=== PATIENT | female | born 1990 | race African-American/Black ===

== ENCOUNTER 2019-07-02 18:42 | Emergency (ER) | payer OTHER, SELFPAY ==
[2019-07-02 19:23] VITALS: BP 118/78; PULSE 88; RESP 16; TEMP 37.5; O2SAT 98
[2019-07-02 19:38] LABS: Basophils Percent Auto 0.3 % (0.2-1.2); Eosinophils Absolute Auto 0.1 K/mm3 (0-0.3); Eosinophils Percent Auto 0.7 % (0-4.4); Hematocrit 33.5 % (37.0-47.0); Hemoglobin 10.9 g/dL (12.0-15.0); Immature Granulocyte Absolute 0.02 K/mm3 (0.00-0.031); Immature Granulocyte Percent A 0.2 % (0-0.5); Lymphocytes Absolute Auto 2.13 K/mm3 (0.9-3.2); Mean Corpuscular HGB Conc 32.5 g/dl (32-36); Mean Corpuscular Hemoglobin 29.3 pg (26-34); Mean Corpuscular Volume 90.1 fl (80-100); Mean Platelet Volume 10.1 fl (7.4-10.4); Monocytes Absolute Auto 0.4 K/mm3 (0.1-0.6); Monocytes Percent Auto 4.3 % (2.6-8.5); Neutrophils Absolute Auto 6.2 K/mm3 (1.3-6.7); Neutrophils Percent Auto 70.5 % (45.5-73.1); Platelet Count Result 293 k/mm3 (150-375); Red Blood Count 3.72 M/mm3 (4.2-5.4); Red Cell Distribution Width 13.5 % (11.5-14.5); White Blood Count 8.9 K/mm3 (4.5-10.0)
--- NOTE | 2019-07-02 21:29 | PC.NURSE ---
Called lab to add on BMP
[2019-07-02] MEDS: SODIUM CHLORIDE 0.9% IV 1,000 ML 999 ML IV CONT (21:33)
[2019-07-02 21:36] VITALS: BP 92/63; PULSE 83
--- NOTE | 2019-07-02 21:36 | ED.FEMALEGU ---
HPI - Female Genitourinary General Chief complaint: Nausea/Vomiting/Diarrhea <Rhea Hastings PA-C - Last Filed: 07/02/19 23:26> Stated complaint: 8 weeks , MELO, nausea <Rhea Hastings PA-C - Last Filed: 07/02/19 23:26> Time Seen by Provider: 07/02/19 20:38 <LATISHA Meadows Last Filed: 07/02/19 23:26> Source: patient <LATISHA Meadows Last Filed: 07/02/19 23:26> Mode of arrival: ambulatory <LATISHA Meadows Last Filed: 07/02/19 23:26> Limitations: no limitations <Rhea Hastings PA-C - Last Filed: 07/02/19 23:26> History of Present Illness HPI Narrative: This is a 29 year old about 8 weeks that presents to the ER for abnormal vaginal discharge x 3 weeks. Reports she was seen by her OB for this and finished a week of medication, she is unsure what medicine it was. Reports no relief after this. Reports she was seen by her OB again today and a topical treatment was prescribed but she was not able to afford this medication. Reports she had an US today because she was having some spotting in the end of last month that has now resolved. Reports ultrasound was normal. Also reports a dull headache today. Reports she has not taken any medication for this. Reports with her other pregnancies she had trouble with headaches in the first trimester. Denies fever, pelvic cramping, vaginal bleeding, vomiting, dysuria, hematuria. <Rhea Hastings PA-C - Last Filed: 07/02/19 23:26> Related Data Allergies/Adverse reactions: Allergies Allergy/AdvReac Type Severity Reaction Status Date / Time No Known Allergies Allergy Verified 07/02/19 19:27 <Rhea Hastings PA-C - Last Filed: 07/02/19 23:26> Review of Systems Review of Systems: Narrative: CONSTITUTIONAL: Denies fever GASTROINTESTINAL: Reports nausea. Denies abdominal pain, vomiting, or diarrhea. GENITOURINARY: Denies dysuria or hematuria. NEUROLOGIC: Reports headache <Rhea Hastings PA-C - Last Filed: 07/02/19 23:26> All systems reviewed & are unremarkable except as noted in HPI and below <Rhea Hastings PA-C - Last Filed: 07/02/19 23:26> [facility] Social History Social History: Social History (Updated 07/02/19 @ 21:44 by Rhea Hastings PA-C) Smoking status: Never smoker Substance use: current Gender identity (if verbalized by the patient): Female <Rhea Hastings PA-C - Last Filed: 07/02/19 23:26> Exam Narrative: Exam Narrative: GENERAL: Well-appearing, well-nourished, and in no acute distress. HEAD: Normocephalic, atraumatic. EYES: EOMI. ENT: Nares clear, no rhinorrhea or epistaxis. Mucous membranes moist. Oropharynx without tonsillar hypertrophy exudate or other lesions. Bilateral TMs pearly carcamo non-bulging NECK: Supple. No adenopathy or masses. CHEST: Clear to auscultation. No respiratory distress. No wheezes rales or rhonchi HEART: Regular rate and rhythm. No murmur heard. Normal peripheral pulses. ABDOMEN: Soft, nontender, nondistended, normal active bowel sounds. EXTREMITIES: Normal range of motion. No edema. SKIN: Warm, dry, no rash. NEURO: No focal deficits. Alert and oriented x3. PSYCH: Normal mood and affect PELVIC: Normal external genitalia. Mild cervical redness/irritation surrounding the os. Moderate amount of malodorous white discharge in the vaginal vault <Rhea Hastings PA-C - Last Filed: 07/02/19 23:26> Course Vital Signs Vital signs: Vital Signs Temperature 37.5 C 07/02/19 19:23 Pulse Rate 88 07/02/19 19:23 Respiratory Rate 16 07/02/19 19:23 Blood Pressure 118/78 07/02/19 19:23 Pulse Oximetry 98 07/02/19 19:23 Temperature 36.8 C 07/02/19 23:40 Pulse Rate 85 07/02/19 23:28 Respiratory Rate 16 07/02/19 23:28 Blood Pressure 95/59 L 07/02/19 23:28 Pulse Oximetry 100 07/02/19 23:28 <Rhea Hastings PA-C - Last Filed: 07/02/19 23:26> Vital Signs Temperature 37.5 C 07/02/19 19:23 Pulse Rate
[2019-07-02 21:37] VITALS: BP 108/74; PULSE 86
[2019-07-02 21:38] VITALS: BP 109/63; PULSE 91
[2019-07-02 21:40] LABS: Blood Urea Nitrogen 8 mg/dL (7-17); Calcium 8.9 mg/dL (8.4-10.2); Carbon Dioxide 21 mmol/L (22-30); Chloride 103 mmol/L (98-107); Estimated CRCL calculation 136 ml/min; Estimated Glomerular Filt Rate > 60; Glucose 88 mg/dL (65-105); Potassium 3.4 mmol/L (3.4-5.0); Sodium 137 mmol/L (137-145)
[2019-07-02 21:47] LABS: Add Urine Microscopic? YES; Appearance Urine Clear (Clear); Bacteria Urine Trace /hpf; Bilirubin Urine Negative (Negative); Blood Urine Negative (Negative); Color Urine Yellow (Yellow); Glucose Urine UA Negative (Negative); Ketones Urine Negative (Negative); Leukocyte Esterase Ur Trace LEU/UL (Negative); Mucus Urine Few /lpf; Nitrate Urine Negative (Negative); Protein Urine Negative (Negative); Specific Grav Ur 1.028 (1.001-1.035); Squamous Epithelial Cell Urine Many /hpf (Few); Urobilinogen Urine Negative mg/dL (<2.0)
[2019-07-02] MEDS: METOCLOPRAMIDE HCL INJ 10 MG/2 ML VIAL IV PUSH (22:52)
[2019-07-02 23:28] VITALS: BP 95/59; PULSE 85; RESP 16; O2SAT 100
[2019-07-02 23:40] VITALS: TEMP 36.8
== END 2019-07-02 23:42 | disposition home or self-care (01) ==
PROVIDERS: Physician Assistant; Emergency Provider Emergency Medicine
DX: O99.89 Other specified diseases and conditions complicating pregnancy, childbirth and the puerperium (principal); N76.0 Acute vaginitis; R51 Headache; Z3A.08 8 weeks gestation of pregnancy
CPT/HCPCS: 36415; 80048; 81001; 84702; 85025; 86900; 86901; 87070; 87491; 87591; 87804; 87808; 96365; 96375; 99284; J0131; J1200; J2765; J7030

== ENCOUNTER 2020-10-28 18:21 | Emergency (ER) | payer OTHER, SELFPAY ==
[2020-10-28 18:30] VITALS: BP 124/64; PULSE 90; RESP 16; TEMP 36.5; O2SAT 99
--- NOTE | 2020-10-28 19:32 | ED.GENADULT ---
HPI - General Adult General Chief complaint: Unspecified Stated complaint: Head Ache,Back Pain Time Seen by Provider: 10/28/20 18:41 Source: patient Mode of arrival: ambulatory Limitations: no limitations History of Present Illness HPI narrative: Patient is here for evaluation of low back pain, headache and foul-smelling urine. She thinks she may be dehydrated due to the smell of her urine although she states that she drinks water quite a bit. She denies any pain with urination, no diarrhea. And no fever. Onset (ago): day(s) Severity: mild Relieving factors: none Exacerbating factors: none Associated symptoms: denies other symptoms Treatments prior to arrival: none Related Data Allergies Allergy/AdvReac Type Severity Reaction Status Date / Time No Known Allergies Allergy Verified 07/02/19 19:27 Review of Systems Review of Systems: All systems reviewed & are unremarkable except as noted in HPI and below [facility] Social History Social History (Updated 10/28/20 @ 19:39 by Marian Denis PA-C) Smoking status: Never smoker Alcohol intake: never Substance use: former Occupation/Education: occupation Additional occupation/education comments: retail Gender identity (if verbalized by the patient): Female Exam Const: General: cooperative, healthy appearing, comfortable and no acute distress HENMT: Head: normal to inspection Mouth: Yes Normal oral and palatal mucosa present Resp: Effort & Inspection: normal respiratory effort Auscultation: clear to auscultation bilaterally Cardio: Rate: regular rate Rhythm: regular rhythm GI: Inspection: normal to inspection GI Palp: Yes Soft to palpation Auscultation: normal bowel sounds Back/Spine/Pelvis: Back: no CVA tenderness Skin: General skin exam: normal color Course Course Emergency Course: Urine with mild cystitis. Will treat with Macrobid. Vital Signs Vital signs: Vital Signs Temperature 36.5 C 10/28/20 18:30 Pulse Rate 90 10/28/20 18:30 Respiratory Rate 16 10/28/20 18:30 Blood Pressure 124/64 10/28/20 18:30 Pulse Oximetry 99 10/28/20 18:30 Temperature 36.5 C 10/28/20 18:30 Pulse Rate 90 10/28/20 18:30 Respiratory Rate 16 10/28/20 18:30 Blood Pressure 124/64 10/28/20 18:30 Pulse Oximetry 99 10/28/20 18:30 Medical Decision Making Vital Signs Vital Signs: Vital Signs Temperature 36.5 C 10/28/20 18:30 Pulse Rate 90 10/28/20 18:30 Respiratory Rate 16 10/28/20 18:30 Blood Pressure 124/64 10/28/20 18:30 Pulse Oximetry 99 10/28/20 18:30 Temperature 36.5 C 10/28/20 18:30 Pulse Rate 90 10/28/20 18:30 Respiratory Rate 16 10/28/20 18:30 Blood Pressure 124/64 10/28/20 18:30 Pulse Oximetry 99 10/28/20 18:30 Lab Data Labs: Urine Characteristics Cloudy Discharge Plan Discharge Clinical Impression: Cystitis Patient Disposition: Home, Self-Care Condition: Stable Instructions: Antibiotic Form, Urinary Tract Infection in Women (ED) Additional Instructions: Complete your antibiotics as prescribed. Continue to take Tylenol or ibuprofen for your pain. Drink water, avoid caffeinated beverages and alcohol. Follow-up with your primary care physician as scheduled on Sunday. Prescriptions: New nitrofurantoin monohyd/m-cryst [Macrobid] 100 mg capsule 100 mg PO Q12H 5 Days Qty: 10 RF: 0 No Action clindamycin HCl 300 mg capsule 300 mg PO BID 7 Days Qty: 14 RF: 0 metoclopramide HCl [Reglan] 5 mg tablet 5 mg PO Q6H PRN (Reason: nausea and vomiting) Qty: 20 RF: 0 Follow-up/Referrals: PHYSICIAN,LABORATORY TECHNOLOGIST [Primary Care Provider] - Time of Disposition: 20:44
[2020-10-28 20:18] LABS: Add Urine Microscopic? YES; Appearance Urine Cloudy (Clear); Bacteria Urine Trace /hpf; Bilirubin Urine Negative (Negative); Blood Urine Negative (Negative); Color Urine Yellow (Yellow); Glucose Urine UA Negative (Negative); Ketones Urine Negative (Negative); Leukocyte Esterase Ur Trace LEU/UL (Negative); Mucus Urine Few /lpf; Nitrate Urine Negative (Negative); Protein Urine Negative (Negative); RBC Urine 0-2 /hpf (0-2); Specific Grav Ur 1.024 (1.001-1.035); Squamous Epithelial Cell Urine Many /hpf (Few); Urobilinogen Urine Negative mg/dL (<2.0); WBC Urine 0-3 /hpf
[2020-10-28 20:31] VITALS: BP 127/79; O2SAT 100
== END 2020-10-28 20:56 | disposition home or self-care (01) ==
PROVIDERS: Physician Assistant; Emergency Provider Emergency Medicine
DX: N30.90 Cystitis, unspecified without hematuria (principal)
CPT/HCPCS: 81001; 81025; 99283

== ENCOUNTER 2021-03-14 09:26 | Emergency (ER) | payer OTHER, SELFPAY ==
--- NOTE | ~2021-03-14 | XR_ITS ---
EXAMINATION: XR chest 1V portable DATE: 03/14/2021 10:02 INDICATION: Chills. Weakness. TECHNIQUE: A single frontal view of the chest was obtained. COMPARISON: Chest 2 views 10/18/2016 FINDINGS: There are airspace opacities in the right perihilar region and left lower lung zone. No ple ural effusion or pneumothorax. The heart size is normal. IMPRESSION: 1. Airspace opacities in right perihilar region and left lower lung zone suspicious for pneumonia. Reviewed, dictated and finalized at location A. TUB OPERATOR IMPRESSION: 1. Airspace opacities in right perihilar region and left lower lung zone suspic ious for pneumonia.
[2021-03-14 09:32] VITALS: BP 112/71; PULSE 103; RESP 16; TEMP 35.7; O2SAT 99
[2021-03-14 10:27] LABS: Basophils Percent Auto 0.3 % (0.2-1.2); Eosinophils Percent Auto 0.3 % (0-4.4); Hematocrit 41.9 % (37.0-47.0); Hemoglobin 13.7 g/dL (12.0-15.0); Immature Granulocyte Absolute 0.01 K/mm3 (0.00-0.031); Immature Granulocyte Percent A 0.3 % (0-0.5); Lymphocytes Absolute Auto 1.16 K/mm3 (0.9-3.2); Lymphocytes Percent Auto 32.6 % (18.3-44.2); Mean Corpuscular HGB Conc 32.7 g/dl (32-36); Mean Corpuscular Hemoglobin 29.7 pg (26-34); Mean Corpuscular Volume 90.9 fl (80-100); Mean Platelet Volume 10.5 fl (7.4-10.4); Monocytes Absolute Auto 0.3 K/mm3 (0.1-0.6); Monocytes Percent Auto 7.3 % (2.6-8.5); Neutrophils Absolute Auto 2.1 K/mm3 (1.3-6.7); Neutrophils Percent Auto 59.2 % (45.5-73.1); Platelet Count Result 193 k/mm3 (150-375); Red Blood Count 4.61 M/mm3 (4.2-5.4); Red Cell Distribution Width 14.2 % (11.5-14.5); White Blood Count 3.6 K/mm3 (4.5-10.0)
[2021-03-14 10:44] LABS: Alanine Aminotransferase 89 U/L (4-35); Albumin Level 4.7 g/dL (3.5-5.1); Alkaline Phosphatase 100 U/L (38-126); Anion Gap 10 mmol/L (8-16); Aspartate Amino Transferase 125 U/L (14-36); Bilirubin,Total 0.3 mg/dL (0.2-1.3); Blood Urea Nitrogen 7 mg/dL (7-17); Carbon Dioxide 25 mmol/L (22-30); Chloride 103 mmol/L (98-107); Estimated CRCL calculation 93 ml/min; Estimated Glomerular Filt Rate > 60; Glucose 86 mg/dL (65-110); Potassium 3.5 mmol/L (3.4-5.0); Sodium 138 mmol/L (137-145)
[2021-03-14] MEDS: SODIUM CHLORIDE 0.9% IV 1,000 ML 999 ML IV CONT (10:51)
[2021-03-14 11:04] LABS: Add Urine Microscopic? YES; Appearance Urine Cloudy (Clear); Bilirubin Urine Negative (Negative); Blood Urine Negative (Negative); Color Urine Amber (Yellow); Glucose Urine UA Negative (Negative); Ketones Urine 2+ mg/dL (Negative); Leukocyte Esterase Ur Negative LEU/UL (Negative); Mucus Urine Heavy /lpf; Nitrate Urine Negative (Negative); Protein Urine 1+ mg/dL (Negative); Squamous Epithelial Cell Urine Many /hpf (Few); Urobilinogen Urine Negative mg/dL (<2.0)
[2021-03-14 11:12] LABS: Specific Grav Ur 1.031 (1.001-1.035)
[2021-03-14 11:21] LABS: Atypical Lymphocytes Present; Platelet Estimate Adequate (Adequate)
[2021-03-14 11:29] LABS: Lipase 69 U/L (23-300)
[2021-03-14] MEDS: KETOROLAC 15 MG/ML VIAL (*BKC) IV PUSH (11:39)
--- NOTE | 2021-03-14 11:59 | ED.GENADULT ---
HPI - General Adult General Chief complaint: Headache Stated complaint: burning pain all over my body Time Seen by Provider: 03/14/21 09:36 Source: patient Mode of arrival: ambulatory Limitations: no limitations History of Present Illness HPI narrative: Patient is a 31-year-old female presented with chief complaint of body aches, generalized abdominal pain, sinus pain, fatigue that began on Sunday. Patient denies nausea, vomiting or diarrhea. Patient denies fever but reports chills. Patient denies coughing, chest pain or shortness of breath. Patient reports that she has taken Sudafed and a muscle relaxer which helped minimally. Patient denies receiving a flu shot or Covid vaccination. Patient reports that she has not been drinking much fluids due to a decreased appetite due to her symptoms. Related Data Allergies Allergy/AdvReac Type Severity Reaction Status Date / Time No Known Allergies Allergy Verified 03/14/21 11:01 Review of Systems Review of Systems: CONSTITUTIONAL: Reports body aches and chills denies fever or sweats. EYES: Denies visual changes, redness, or discharge. ENT: Denies rhinorrhea, congestion, sore throat, or otalgia. CARDIOVASCULAR: Denies chest pain, palpitations, or edema. RESPIRATORY: Denies cough or dyspnea. GASTROINTESTINAL: Reports abdominal pain, denies nausea, vomiting, or diarrhea. GENITOURINARY: Denies dysuria or hematuria. SKIN: Denies rash or itching. MUSCULOSKELETAL: Denies back pain, joint pain, or myalgia. NEUROLOGIC: Reports headache denies numbness, dizziness, or weakness. PSYCHIATRIC: Denies anxiety or depression. [facility] Social History Social History (Updated 10/28/20 @ 19:39 by Marian Denis PA-C) Smoking status: Never smoker Alcohol intake: never Substance use: former Additional occupation/education comments: retail Gender identity (if verbalized by the patient): Female Exam Narrative: GENERAL: Well-appearing, well-nourished, and in no acute distress. Nontoxic in appearance. HEAD: Normocephalic, atraumatic. EYES: PERRLA and EOMI. ENT: Nares clear, no rhinorrhea or epistaxis. Mucous membranes moist. Oropharynx without tonsillar hypertrophy exudate or other lesions. Bilateral TMs pearly carcamo nonbulging NECK: Supple. No adenopathy or masses. Range of motion intact without rigidity. CHEST: Clear to auscultation. No respiratory distress. No wheezes rales or rhonchi. No tachypnea. No cough noted during exam. HEART: Regular rate and rhythm. No murmur heard. Normal peripheral pulses. ABDOMEN: Soft, nontender, nondistended, normal active bowel sounds. EXTREMITIES: Normal range of motion. No edema. SKIN: Warm, dry, no rash. NEURO: No focal deficits. Alert and oriented x3. PSYCH: Normal mood and affect. Course Vital Signs Vital signs: Vital Signs Temperature 96.3 F L 03/14/21 09:32 Pulse Rate 103 H 03/14/21 09:32 Respiratory Rate 16 03/14/21 09:32 Blood Pressure 112/71 03/14/21 09:32 Pulse Oximetry 99 03/14/21 09:32 Temperature 96.3 F L 03/14/21 09:32 Pulse Rate 103 H 03/14/21 09:32 Respiratory Rate 16 03/14/21 09:32 Blood Pressure 112/71 03/14/21 09:32 Pulse Oximetry 99 03/14/21 09:32 Medical Decision Making MDM Narrative Medical decision making narrative: Patient appears to have viral syndrome however chest x-ray shows area suspicious for pneumonia. Will place patient on azithromycin while Covid test is pending. Suspect viral etiology more so than bacterial but will cover. Patient is not hypoxic. No vomiting. Patient liver enzymes are slightly elevated. This is likely also due to viral syndrome. Patient has been instructed to follow-up with primary care for lab repeat. Patient has been instructed to return to emergency department if she has any localized abdominal pain or worsening of her discomfort., Persistent fever, inability to eat or drink, chest pain, shortness of breath or any other emergent symptoms. Vital Signs
[2021-03-14 12:12] LABS: Monoscreen Negative (Negative); Negative Monotest Control Negative (Negative); Positive Monotest Control Positive (Positive)
[2021-03-14 18:23] LABS: SARS-CoV-2 RNA PCR Positive
== END 2021-03-14 12:59 | disposition home or self-care (01) ==
PROVIDERS: Physician Assistant; Emergency Provider Emergency Medicine
DX: U07.1 COVID-19 (principal); R91.8 Other nonspecific abnormal finding of lung field
CPT/HCPCS: 36415; 71045; 80053; 81001; 81025; 83690; 85025; 86308; 87804; 96361; 96374; 99284; C9803; J1885; J7030; U0003; U0005

== ENCOUNTER 2022-05-24 23:18 | Emergency (ER) | payer OTHER, SELFPAY ==
--- NOTE | ~2022-05-24 | XR_ITS ---
Clinical Indication: Chest congestion PA and lateral views of the chest: Comparison: 03/14/2021 Findings: The lungs are clear, without evidence of focal consolidation or pleural effusion. Cardiome diastinal silhouette is within normal limits. Bones and soft tissues are unremarkable. Impression: Normal chest. Reviewed, dictated and finalized at [facility]. GER ACTION Impression: Normal chest.
[2022-05-24 23:26] VITALS: BP 109/64; PULSE 109; RESP 18; TEMP 36.2; O2SAT 97
--- NOTE | 2022-05-24 23:51 | ED.URI ---
HPI - URI/Sore Throat General Chief Complaint: Upper Respiratory Infection Stated Complaint: congestion, feel dehydrated, burning in chest Time Seen by Provider: 05/24/22 23:29 History of Present Illness HPI Narrative: Patient is a 32-year-old female who is currently 28 weeks here for evaluation of epigastric abdominal burning and sinus congestion for the past 2 days. States that she went to an urgent care facility today and was told to use Flonase. She has been doing medicines without relief of her symptoms. Contacted OB triage who recommended ED eval. Patient believes her pain is due to GERD and has not attempted any medicine for this yet. No nausea, vomiting, diarrhea, constipation, fevers or chills. No contractions, vaginal bleeding, sudden gush of fluids, decreased motion. Related Data Allergies Allergy/AdvReac Type Severity Reaction Status Date / Time No Known Allergies Allergy Verified 05/24/22 23:26 Review of Systems Review of Systems: Gen.: Denies fevers or chills Eyes: Denies eye pain or visual change ENT: Reports congestion. Respiratory: Denies shortness of breath or cough CV: Reports chest pain. GI: Reports upper abdominal pain. denies burning, urgency, frequency or hematuria Musculoskeletal: Denies back pain or muscle pain Neuro: Denies numbness, tingling, weakness or focal weakness Skin: Denies rash Except as documented, all other systems reviewed and negative PMFSH Social History Social History (System 03/15/21 @ 12:59 by Aminah Rivera) Smoking status: Never smoker Alcohol intake: never Substance use: former Occupation/Education: occupation Additional occupation/education comments: retail Gender identity (if verbalized by the patient): Female Exam Narrative: APPEARANCE: Well appearing, no pain in distress, well-nourished. Head: Normocephalic and atraumatic. EYES: PERRLA/EOMI, conjunctivae clear NOSE: No nasal drainage EARS: External ear normal in appearance THROAT: Oropharynx is clear. Mucous membranes are moist. NECK: Mucosal edema and nares. Supple. No adenopathy, no masses. RESPIRATORY: Airway patent, respirations nonlabored. Clear to auscultation bilaterally, no rales, rhonchi, wheezing. CARDIOVASCULAR: Regular rate and rhythm without murmurs, rubs, or gallops. ABDOMINAL: Gravid uterus. No tenderness to palpation. Normoactive bowel sounds. Soft. No rebound tenderness or guarding. MUSCULOSKELETAL: Extremities are warm and well-perfused. Moves all extremities well. No edema. NEURO: Normal speech. No focal neurologic deficits. SKIN: Skin is warm and dry. No rashes. PSYCHIATRIC: Normal affect/mood. Course Vital Signs Vital signs: Vital Signs Temperature 97.2 F L 05/24/22 23:26 Pulse Rate 109 H 05/24/22 23:26 Respiratory Rate 18 05/24/22 23:26 Blood Pressure 109/64 05/24/22 23:26 Pulse Oximetry 97 05/24/22 23:26 Oxygen Delivery Room Air 05/24/22 23:26 Temperature 97.2 F L 05/24/22 23:26 Pulse Rate 69 05/25/22 01:52 Respiratory Rate 19 05/25/22 01:52 Blood Pressure 130/74 05/25/22 01:52 Pulse Oximetry 99 05/25/22 01:52 Oxygen Delivery Room Air 05/25/22 00:44 MDM - URI/Sore Throat MDM Narrative Medical decision making narrative: 32-year-old female here for evaluation of upper respiratory infectious type symptoms over the past day associated with an epigastric burning sensation. Patient is nontoxic-appearing and has normal vital signs. No abdominal tenderness on exam, heart tones detected at bedside. History consistent with GERD. She was given Tums and Pepcid with relief of her symptoms. EKG and troponin nonischemic. Chest x-ray is clear by preliminary read. COVID and flu are negative. Her hemoglobin is 9.7, not complaining of bleeding. She is agreeable plan for outpatient follow-up. Return precautions discussed and she voiced understanding. Lab Data 05/25/22 00:03 05/25/22 00
[2022-05-24] MEDS: CALCIUM CARBONATE (TUMS) 500 MG (200 MG ELEMENTAL) PO (23:58)
--- NOTE | 2022-05-25 00:01 | ECG_ITS ---
Measurements Intervals [place] Rate: 101 P: 32 VT: 155 QRS: 36 QRSD: 80 T: 20 QT: 340 QTc: 442 Interpretive Statements SINUS TACHYCARDIA NONSPECIFIC T-WAVE ABNORMALITY- ANTERIOR LEADS BASELINE ARTIFACT- I, II, III, AVR, AVL, AVF, V1-V6 BORDERLINE ECG ABNORMAL RHYTHM ECG NO PREVIOUS ECG AVAILABLE FOR COMPARISON Electronically Signed On 05-25-2022 9:06:23 HEEL DIPPER by Jean Downs D.O.
[2022-05-25 00:16] LABS: Basophils Percent Auto 0.3 % (0.2-1.2); Eosinophils Absolute Auto 0.1 K/mm3 (0-0.3); Hematocrit 30.5 % (37.0-47.0); Hemoglobin 9.7 g/dL (12.0-15.0); Immature Granulocyte Absolute 0.08 K/mm3 (0.00-0.031); Immature Granulocyte Percent A 0.8 % (0-0.5); Lymphocytes Absolute Auto 2.11 K/mm3 (0.9-3.2); Lymphocytes Percent Auto 21.1 % (18.3-44.2); Mean Corpuscular HGB Conc 31.8 g/dl (32-36); Mean Corpuscular Hemoglobin 28.1 pg (26-34); Mean Corpuscular Volume 88.4 fl (80-100); Mean Platelet Volume 10.3 fl (7.4-10.4); Monocytes Absolute Auto 0.6 K/mm3 (0.1-0.6); Monocytes Percent Auto 5.6 % (2.6-8.5); Neutrophils Absolute Auto 7.1 K/mm3 (1.3-6.7); Neutrophils Percent Auto 71.2 % (45.5-73.1); Platelet Count Result 345 k/mm3 (150-375); Red Blood Count 3.45 M/mm3 (4.2-5.4); Red Cell Distribution Width 15.5 % (11.5-14.5)
[2022-05-25 00:19] LABS: Alanine Aminotransferase 36 U/L (6-35); Albumin Level 3.6 g/dL (3.5-5.1); Alkaline Phosphatase 114 U/L (38-126); Anion Gap 5 mmol/L (8-16); Aspartate Amino Transferase 60 U/L (14-36); Bilirubin,Total 0.4 mg/dL (0.2-1.3); Blood Urea Nitrogen 4 mg/dL (7-17); Calcium 8.8 mg/dL (8.4-10.2); Carbon Dioxide 21 mmol/L (22-30); Chloride 105 mmol/L (98-107); Estimated CRCL calculation 165 ml/min; Estimated Glomerular Filt Rate > 60; Glucose 104 mg/dL (65-110); Lipase 147 U/L (23-300); Potassium 3.4 mmol/L (3.4-5.0); Sodium 131 mmol/L (137-145)
[2022-05-25 00:44] VITALS: O2SAT 97
[2022-05-25 00:44] LABS: Influenza A QL RT-PCR Negative (Negative); Influenza B QL RT-PCR Negative (Negative); SARS-CoV-2 RNA PCR Negative
[2022-05-25 00:46] LABS: Troponin I < 0.012 ng/mL (0.000-0.034)
[2022-05-25] MEDS: LACTATED RINGERS 1,000 ML 999 ML IV CONT (01:07)
[2022-05-25] MEDS: FAMOTIDINE 20 MG/2 ML VIAL IV PUSH (01:07)
[2022-05-25 01:52] VITALS: BP 130/74; PULSE 69; RESP 19; O2SAT 99
--- NOTE | 2022-06-08 15:19 | PC.NURSE ---
LATE ENTRY This note is being entered to document information to the patient's record. The following information was omitted on [05/24/22], by [Tracee Lee RN]. NS stop time 0200
== END 2022-05-25 01:50 | disposition home or self-care (01) ==
PROVIDERS: Emergency Provider Physician Assistant; PCP Family Medicine
DX: O99.513 Diseases of the respiratory system complicating pregnancy, third trimester (principal); J06.9 Acute upper respiratory infection, unspecified; O99.613 Diseases of the digestive system complicating pregnancy, third trimester; K21.9 Gastro-esophageal reflux disease without esophagitis; Z20.822 Contact with and (suspected) exposure to COVID-19; Z3A.28 28 weeks gestation of pregnancy
CPT/HCPCS: 36415; 71046; 80053; 83690; 84484; 85025; 87636; 93005; 96361; 96374; 99284; A9270; J7120

== ENCOUNTER 2022-06-29 13:01 | Outpatient (CLI) | payer OTHER, SELFPAY ==
--- NOTE | ~2022-06-29 | US_ITS ---
EXAMINATION: US OB limited w BPP DATE: 06/29/2022 15:08 INDICATION: Nonreactive nonstress test. TECHNIQUE: Real-time pelvic ultrasound was performed. COMPARISON: None. FINDINGS: There is a single living fetus in vertex presentation. The placenta is anterior, more than 5 cm from the cervix. heart rate is 135 beats per minute (bpm). The cervical length measures 3.2 cm on t ransabdominal images, which is normal. The amniotic fluid index is 13.4 cm, which is normal. Biophysical profile performed by the technologist: breathing (30 sec sustained breathing in 30 minutes): 2 out of 2 movement (3 gross body movements in 30 minutes): 2 out of 2 tone (one episode of [id number]-[id number] limb movement): 2 out of 2 Amniotic fluid pocket (2 cm): 2 out of 2 Total score: 8 out of 8 IMPRESSION: 1. Single living fetus in vertex presentation. 2. Biophysical profile 8 out of 8. Reviewed, dictated and finalized at location A. CTOR INFORMATICS
[2022-06-29 13:32] VITALS: BP 109/65; PULSE 107
[2022-06-29 13:45] VITALS: BP 106/63; PULSE 101
[2022-06-29 15:30] VITALS: BP 109/65; PULSE 107
== END 2022-06-29 15:30 | disposition home or self-care (01) ==
LOC: ANHOBOP 13:07 → ANHOBPP 13:08
PROVIDERS: PCP Family Medicine; Visit Provider Advanced Practice Midwife
DX: O41.8X90 Other specified disorders of amniotic fluid and membranes, unspecified trimester, not applicable or unspecified (principal); Z3A.00 Weeks of gestation of pregnancy not specified
CPT/HCPCS: 59025; 76815; 76819; 84112; 99199

== ENCOUNTER 2022-07-24 16:24 | Observation (INO) | payer OTHER, SELFPAY ==
[2022-07-24] VITALS (21 sets, daily range): BP systolic 61–189; BP diastolic 33–173; PULSE 95–108; O2SAT 98–100; BMI 34.2
--- NOTE | 2022-07-24 16:59 | OBADM ---
This patient, Yen Tim, admitted to the OB room Labor/Delivery/Recovery 105 for observation. Patient/family oriented to hospital policies and general routines including ID bracelet, bed and alarms, visiting hours, pain management, procedures, bathroom and other care routines, personal items, smoking policy, room service/diet, and visiting hours. Patient/Family are encouraged to report perceived risks to care and to ask questions if they do not understand what they are told or what they should do.
[2022-07-24 17:10] LABS: Basophils Percent Auto 0.2 % (0.2-1.2); Eosinophils Absolute Auto 0.1 K/mm3 (0-0.3); Eosinophils Percent Auto 1.1 % (0-4.4); Hematocrit 34.2 % (37.0-47.0); Immature Granulocyte Absolute 0.07 K/mm3 (0.00-0.031); Immature Granulocyte Percent A 0.8 % (0-0.5); Lymphocytes Absolute Auto 1.78 K/mm3 (0.9-3.2); Mean Corpuscular HGB Conc 32.2 g/dl (32-36); Mean Corpuscular Hemoglobin 28.9 pg (26-34); Mean Corpuscular Volume 89.8 fl (80-100); Mean Platelet Volume 10.6 fl (7.4-10.4); Monocytes Absolute Auto 0.5 K/mm3 (0.1-0.6); Monocytes Percent Auto 5.8 % (2.6-8.5); Neutrophils Percent Auto 71.1 % (45.5-73.1); Platelet Count Result 286 k/mm3 (150-375); Red Blood Count 3.81 M/mm3 (4.2-5.4); White Blood Count 8.5 K/mm3 (4.5-10.0)
[2022-07-24 17:20] LABS: Alanine Aminotransferase 58 U/L (6-35); Albumin Level 3.5 g/dL (3.5-5.1); Alkaline Phosphatase 224 U/L (38-126); Anion Gap 8 mmol/L (8-16); Aspartate Amino Transferase 45 U/L (14-36); Bilirubin,Total 0.6 mg/dL (0.2-1.3); Blood Urea Nitrogen 3 mg/dL (7-17); Calcium 8.7 mg/dL (8.4-10.2); Carbon Dioxide 19 mmol/L (22-30); Chloride 108 mmol/L (98-107); Estimated CRCL calculation 169 ml/min; Estimated Glomerular Filt Rate > 60; Glucose 105 mg/dL (65-110); Potassium 3.6 mmol/L (3.4-5.0); Sodium 135 mmol/L (137-145); Uric Acid 3.3 mg/dL (2.5-7.5)
[2022-07-24 17:28] LABS: Creatinine Urine 123.1 mg/dL; Total Protein Urine Random 6 mg/dL; Ur Ttl Prot Creatinine Ratio 0.05 mg/mg (0-0.20)
[2022-07-24 17:32] LABS: Appearance Urine Cloudy (Clear); Bacteria Urine 3+ /hpf; Bilirubin Urine Negative (Negative); Blood Urine Negative (Negative); Budding Yeast Urine Present /hpf; Color Urine Dark Yellow (Yellow); Glucose Urine UA Negative (Negative); Ketones Urine Trace mg/dL (Negative); Leukocyte Esterase Ur 2+ LEU/UL (NEGATIVE); Need Manual Microscopic Reviewed; Nitrate Urine Negative (Negative); Protein Urine Trace mg/dL (Negative); RBC Urine 0-2 /hpf (0-2); Specific Grav Ur 1.019 (1.001-1.035); Squamous Epithelial Cell Urine Occasional /hpf (Few); WBC Urine 21-50 /hpf (0-3); pH Urine 5.5 (5.0-9.0)
[2022-07-24 17:33] LABS: Add Urine Microscopic? YES
--- NOTE | 2022-07-24 17:49 | PC.NURSE ---
This RN talked to Elke PATEL and she stated that the patient should stay until 10pm to get repeat labs done.
[2022-07-24 22:14] LABS: Basophils Percent Auto 0.2 % (0.2-1.2); Eosinophils Absolute Auto 0.1 K/mm3 (0-0.3); Eosinophils Percent Auto 1.2 % (0-4.4); Hematocrit 32.6 % (37.0-47.0); Hemoglobin 10.7 g/dL (12.0-15.0); Immature Granulocyte Absolute 0.07 K/mm3 (0.00-0.031); Immature Granulocyte Percent A 0.9 % (0-0.5); Lymphocytes Absolute Auto 1.64 K/mm3 (0.9-3.2); Lymphocytes Percent Auto 20.4 % (18.3-44.2); Mean Corpuscular HGB Conc 32.8 g/dl (32-36); Mean Corpuscular Hemoglobin 29.4 pg (26-34); Mean Corpuscular Volume 89.6 fl (80-100); Mean Platelet Volume 10.4 fl (7.4-10.4); Monocytes Absolute Auto 0.6 K/mm3 (0.1-0.6); Monocytes Percent Auto 6.9 % (2.6-8.5); Neutrophils Absolute Auto 5.6 K/mm3 (1.3-6.7); Neutrophils Percent Auto 70.4 % (45.5-73.1); Platelet Count Result 289 k/mm3 (150-375); Red Blood Count 3.64 M/mm3 (4.2-5.4); Red Cell Distribution Width 16.1 % (11.5-14.5)
[2022-07-24 22:26] LABS: Alanine Aminotransferase 59 U/L (6-35); Albumin Level 3.3 g/dL (3.5-5.1); Alkaline Phosphatase 214 U/L (38-126); Anion Gap 6 mmol/L (8-16); Aspartate Amino Transferase 45 U/L (14-36); Bilirubin,Total 0.5 mg/dL (0.2-1.3); Blood Urea Nitrogen 3 mg/dL (7-17); Calcium 8.9 mg/dL (8.4-10.2); Carbon Dioxide 22 mmol/L (22-30); Chloride 109 mmol/L (98-107); Estimated CRCL calculation 169 ml/min; Estimated Glomerular Filt Rate > 60; Glucose 99 mg/dL (65-110); Potassium 3.5 mmol/L (3.4-5.0); Sodium 137 mmol/L (137-145); Uric Acid 3.4 mg/dL (2.5-7.5)
--- NOTE | 2022-07-24 22:30 | PC.NURSE ---
Carol PATEL called via typewriter ribbon winder and informed of lab results. Orders received to DC pt to home
--- NOTE | 2022-08-07 08:07 | PM.OBTRLD ---
OB - Triage/Final Diagnosis Visit Information Comments/Additional reasons for admission: I have assessed the risk for this patient, Yen Tim, and determined that she would benefit from observation care. Evaluation Laboratory results: Laboratory Tests 07/24/22 07/24/22 07/24/22 16:50 16:50 16:50 WBC 8.5 RBC 3.81 L Hgb 11.0 L Hct 34.2 L MCV 89.8 MCH 28.9 MCHC 32.2 RDW 16.0 H Plt Count 286 MPV 10.6 H Immature Gran % (Auto) 0.8 H Neut % (Auto) 71.1 Lymph % (Auto) 21.0 Shelby % (Auto) 5.8 Eos % (Auto) 1.1 Baso % (Auto) 0.2 Lymph # (Auto) 1.78 Shelby # (Auto) 0.5 Eos # (Auto) 0.1 Baso # (Auto) 0.0 Abs Immat Gran (auto) 0.07 H Absolute Neuts (auto) 6.0 Absolute Nucleated RBC 0.0 Nucleated RBC % 0.0 Sodium 135 L Potassium 3.6 Chloride 108 H Carbon Dioxide 19 L Anion Gap 8 BUN 3 L Creatinine 0.40 L Estim Creat Clear Calc 169 Estimated GFR > 60 Glucose 105 Uric Acid 3.3 Calcium 8.7 Total Bilirubin 0.6 AST 45 H ALT 58 H Alkaline Phosphatase 224 H Total Protein 7.0 Albumin 3.5 Urine Color Dark yellow Urine Appearance Cloudy H Urine pH 5.5 Ur Specific Ava 1.019 Urine Protein Trace Urine Glucose (UA) Negative Urine Ketones Trace Ur Blood (Man) Negative Urine Nitrate Negative Urine Bilirubin Negative Urine Urobilinogen 1.0 Ur Leukocyte Esterase 2+ H Add Ur Microanalysis Reviewed Urine RBC 0-2 Urine WBC 21-50 Ur Squamous Epith Cells Occasional Urine Bacteria 3+ H Urine Casts 3-5 Urine Yeast (Budding) Present H U Random Total Protein Urine Creatinine Protein/Creat Ratio 2 07/24/22 07/24/22 07/24/22 16:50 22:02 22:02 WBC 8.0 RBC 3.64 L Hgb 10.7 L Hct 32.6 L MCV 89.6 MCH 29.4 MCHC 32.8 RDW 16.1 H Plt Count 289 MPV 10.4 Immature Gran % (Auto) 0.9 H Neut % (Auto) 70.4 Lymph % (Auto) 20.4 Shelby % (Auto) 6.9 Eos % (Auto) 1.2 Baso % (Auto) 0.2 Lymph # (Auto) 1.64 Shelby # (Auto) 0.6 Eos # (Auto) 0.1 Baso # (Auto) 0.0 Abs Immat Gran (auto) 0.07 H Absolute Neuts (auto) 5.6 Absolute Nucleated RBC 0.0 Nucleated RBC % 0.0 Sodium 137 Potassium 3.5 Chloride 109 H Carbon Dioxide 22 Anion Gap 6 L BUN 3 L Creatinine 0.40 L Estim Creat Clear Calc 169 Estimated GFR > 60 Glucose 99 Uric Acid 3.4 Calcium 8.9 Total Bilirubin 0.5 AST 45 H ALT 59 H Alkaline Phosphatase 214 H Total Protein 7.0 Albumin 3.3 L Urine Color Urine Appearance Urine pH Ur Specific Ava Urine Protein Urine Glucose (UA) Urine Ketones Ur Blood (Man) Urine Nitrate Urine Bilirubin Urine Urobilinogen Ur Leukocyte Esterase Add Ur Microanalysis Urine RBC Urine WBC Ur Squamous Epith Cells Urine Bacteria Urine Casts Urine Yeast (Budding) U Random Total Protein 6 Urine Creatinine 123.1 Protein/Creat Ratio 2 0.05 Final Diagnosis (1) RUQ abdominal pain: Code(s): R10.11 - Right upper quadrant pain Status: Acute
== END 2022-07-24 22:48 | disposition home or self-care (01) ==
PROVIDERS: Advanced Practice Midwife; Admitting Provider Obstetrics & Gynecology; PCP Family Medicine; Visit Provider Obstetrics & Gynecology
DX: O26.899 Other specified pregnancy related conditions, unspecified trimester (principal); R10.11 Right upper quadrant pain; Z3A.00 Weeks of gestation of pregnancy not specified
CPT/HCPCS: 36415; 59025; 80053; 81001; 82570; 84112; 84156; 84550; 85025; 87086; G0378; G0379

== ENCOUNTER 2022-07-31 20:01 | Outpatient (RCR) | payer OTHER, SELFPAY ==
[2022-07-31 20:39] VITALS: BP 121/63; PULSE 108
[2022-07-31 20:55] LABS: Alanine Aminotransferase 56 U/L (6-35); Albumin Level 3.4 g/dL (3.5-5.1); Alkaline Phosphatase 203 U/L (38-126); Anion Gap 7 mmol/L (8-16); Aspartate Amino Transferase 49 U/L (14-36); Bilirubin,Total 0.5 mg/dL (0.2-1.3); Blood Urea Nitrogen 4 mg/dL (7-17); Calcium 8.7 mg/dL (8.4-10.2); Carbon Dioxide 23 mmol/L (22-30); Chloride 106 mmol/L (98-107); Estimated Glomerular Filt Rate > 60; Glucose 126 mg/dL (65-110); Potassium 3.5 mmol/L (3.4-5.0); Sodium 136 mmol/L (137-145)
[2022-08-10 21:37] LABS: Chenodeoxycholic Acid 6.6 umol/L (< OR = 3.9); Cholic Acid 17.2 umol/L (< OR = 2.8); Deoxycholic Acid 2.6 umol/L (< OR = 2.3); Total Bile Acids 26.4 umol/L (< OR = 8.3)
== END 2022-09-25 18:29 | disposition home or self-care (01) ==
LOC: ANHOBOP 20:01
PROVIDERS: Advanced Practice Midwife; PCP Family Medicine; Visit Provider Obstetrics & Gynecology
DX: O26.613 Liver and biliary tract disorders in pregnancy, third trimester (principal); Z3A.36 36 weeks gestation of pregnancy
CPT/HCPCS: 36415; 59025; 80053; 82542

== ENCOUNTER 2022-08-08 00:46 | Inpatient (IN) | payer OTHER, SELFPAY ==
[2022-08-08] VITALS (60 sets, daily range): BP systolic 43–126; BP diastolic 31–94; PULSE 90–128; RESP 16–18; TEMP 36.2–36.9; O2SAT 99–100; BMI 32.6
[2022-08-08 01:40] LABS: Basophils Percent Auto 0.2 % (0.2-1.2); Eosinophils Absolute Auto 0.1 K/mm3 (0-0.3); Eosinophils Percent Auto 0.8 % (0-4.4); Hematocrit 35.6 % (37.0-47.0); Hemoglobin 11.6 g/dL (12.0-15.0); Immature Granulocyte Absolute 0.06 K/mm3 (0.00-0.031); Immature Granulocyte Percent A 0.7 % (0-0.5); Lymphocytes Absolute Auto 1.73 K/mm3 (0.9-3.2); Lymphocytes Percent Auto 20.1 % (18.3-44.2); Mean Corpuscular HGB Conc 32.6 g/dl (32-36); Mean Corpuscular Hemoglobin 29.1 pg (26-34); Mean Corpuscular Volume 89.2 fl (80-100); Monocytes Absolute Auto 0.5 K/mm3 (0.1-0.6); Monocytes Percent Auto 5.5 % (2.6-8.5); Neutrophils Absolute Auto 6.3 K/mm3 (1.3-6.7); Neutrophils Percent Auto 72.7 % (45.5-73.1); Platelet Count Result 305 k/mm3 (150-375); Red Blood Count 3.99 M/mm3 (4.2-5.4); Red Cell Distribution Width 15.5 % (11.5-14.5); White Blood Count 8.6 K/mm3 (4.5-10.0)
[2022-08-08 01:59] LABS: Alanine Aminotransferase 72 U/L (6-35); Albumin Level 3.8 g/dL (3.5-5.1); Alkaline Phosphatase 210 U/L (38-126); Anion Gap 8 mmol/L (8-16); Aspartate Amino Transferase 59 U/L (14-36); Bilirubin,Total 0.6 mg/dL (0.2-1.3); Blood Urea Nitrogen 6 mg/dL (7-17); Calcium 9.1 mg/dL (8.4-10.2); Carbon Dioxide 20 mmol/L (22-30); Chloride 107 mmol/L (98-107); Estimated CRCL calculation 165 ml/min; Estimated Glomerular Filt Rate > 60; Glucose 86 mg/dL (65-110); Potassium 3.8 mmol/L (3.4-5.0); Sodium 135 mmol/L (137-145)
[2022-08-08] MEDS: LACTATED RINGERS 1,000 ML 125 ML IV CONT ×2 (02:00→08:01)
[2022-08-08] MEDS: OXYTOCIN 30 UNITS/NS 500 ML 30 UNITS/500 ML BAG IV CONT (02:01)
--- NOTE | 2022-08-08 02:14 | LDADM ---
This patient, Yen Tim, was admitted to Labor/Delivery/Recovery 107 on 08/08/22 at 00:46. Plans for labor, pain management and were discussed with patient. Patient/family oriented to hospital policies and general routines including ID bracelet, bed and alarms, visiting hours, pain management, procedures, bathroom and other care routines, personal items, smoking policy, room service/diet and guest tray routines, security routines, and visiting hours. Patient/Family are encouraged to report perceived risks to care and to ask questions if they do not understand what they are told or what they should do. See [facility]BIX for further documentation.
[2022-08-08] MEDS: AMPICILLIN 2 GM/NS 100 ML 2 GM/100 ML BAG IVPB (02:17)
[2022-08-08] MEDS: diphenhydrAMINE HCl INJ 50 MG/ML VIAL 25 MG IV PUSH (03:44)
[2022-08-08] MEDS: AMPICILLIN 1 GM/NS 50 ML 1 GM/50 ML BAG IVPB (06:24)
--- NOTE | 2022-08-08 06:28 | WPDANESEPP ---
Anes - Eval Pre Procedure Procedure: labor epidural Date/Time: 08/08/22 06:28 Surgeon: kishan Preop Diagnosis: pain during labor Pre Op Diagnosis: IOL Patient Data Age: 32 Gender: F Height: 1.57 m Weight: 81 kg Last Vital Signs Temp 36.8 C 08/08/22 05:00 Pulse 101 H 08/08/22 06:01 BP 113/71 08/08/22 06:01 O2 Del Method Room Air 08/08/22 01:09 Allergies Allergy/AdvReac Type Severity Reaction Status Date / Time No Known Allergies Allergy Verified 07/20/22 14:34 Home Medications Medication Instructions Recorded Confirmed Type HIP See Rx Instructions .Route .COMPLEX 06/23/22 07/20/22 History Laboratory Tests 08/08/22 08/08/22 08/08/22 01:32 01:32 01:32 WBC 8.6 K/mm3 K/mm3 (4.5-10.0) RBC 3.99 M/mm3 L M/mm3 (4.2-5.4) Hgb 11.6 g/dL L g/dL (12.0-15.0) Hct 35.6 % L % (37.0-47.0) MCV 89.2 fl fl (80-100) MCH 29.1 pg pg (26-34) MCHC 32.6 g/dl g/dl (32-36) RDW 15.5 % H % (11.5-14.5) Plt Count 305 k/mm3 k/mm3 (150-375) MPV 11.0 fl H fl (7.4-10.4) Immature Gran % (Auto) 0.7 % H % (0-0.5) Neut % (Auto) 72.7 % % (45.5-73.1) Lymph % (Auto) 20.1 % % (18.3-44.2) [place] % (Auto) 5.5 % % (2.6-8.5) Eos % (Auto) 0.8 % % (0-4.4) Baso % (Auto) 0.2 % % (0.2-1.2) Lymph # (Auto) 1.73 K/mm3 K/mm3 (0.9-3.2) [place] # (Auto) 0.5 K/mm3 K/mm3 (0.1-0.6) Eos # (Auto) 0.1 K/mm3 K/mm3 (0-0.3) Baso # (Auto) 0.0 K/mm3 K/mm3 (0.0-0.1) Abs Immat Gran (auto) 0.06 K/mm3 H K/mm3 (0.00-0.031) Absolute Neuts (auto) 6.3 K/mm3 K/mm3 (1.3-6.7) Absolute Nucleated RBC 0.0 K/mm3 K/mm3 (0.0-0.012) Nucleated RBC % 0.0 % % (0.0-0.2) Sodium 135 mmol/L L mmol/L (137-145) Potassium 3.8 mmol/L mmol/L (3.4-5.0) Chloride 107 mmol/L mmol/L (98-107) Carbon Dioxide 20 mmol/L L mmol/L (22-30) Anion Gap 8 mmol/L mmol/L (8-16) BUN 6 mg/dL L mg/dL (7-17) Creatinine 0.40 mg/dL L mg/dL (0.7-1.0) Estim Creat Clear Calc 165 ml/min ml/min Estimated GFR > 60 (59 - ) Glucose 86 mg/dL mg/dL (65-110) Calcium 9.1 mg/dL mg/dL (8.4-10.2) Total Bilirubin 0.6 mg/dL mg/dL (0.2-1.3) AST 59 U/L H U/L (14-36) ALT 72 U/L H U/L (6-35) Alkaline Phosphatase 210 U/L H U/L (38-126) Total Protein 7.0 g/dL g/dL (6.3-8.2) Albumin 3.8 g/dL g/dL (3.5-5.1) RPR Pending Blood Type Antibody Screen 08/08/22 01:33 WBC RBC Hgb Hct MCV MCH MCHC RDW Plt Count MPV Immature Gran % (Auto) Neut % (Auto) Lymph % (Auto) [place] % (Auto) Eos % (Auto) Baso % (Auto) Lymph # (Auto) [place] # (Auto) Eos # (Auto) Baso # (Auto) Abs Immat Gran (auto) Absolute Neuts (auto) Absolute Nucleated RBC Nucleated RBC % Sodium Potassium Chloride Carbon Dioxide Anion Gap BUN Creatinine Estim Creat Clear Calc Estimated GFR Glucose Calcium Total Bilirubin AST ALT Alkaline Phosphatase Total Protein Albumin RPR Blood Type O Positive Antibody Screen Negative Patient hx anesthesia problems: none Family hx anesthesia problems: none Results Review: All pre-operative results and documents have been reviewed as part of the pre-operative evaluation. [facility] Past Medical History Medical History (Updated 08/08/22 @ 06:29 by Dorina Carr CRNA) IUP (intrauterine ), incidental Family History
--- NOTE | 2022-08-08 07:55 | WPDOBADMIT ---
Obstetrics - Admit Note Admission Note: 32 y/o at 38 weeks here for induction of labor d/t cholestasis with elevated lft. VSS Contractions regular FHR category 1 Cervix 4-5/100/-2 with bbow Plan: epidural placement prior to arom anticipate record reviewed. No pertinent additions to the history and/or any subsequent changes in the physical findings that are not consistent with the expected course of the were found. Additions to the history and/or subsequent changes in the physical findings follow. None.
--- NOTE | 2022-08-08 11:02 | PM.OBPRVD ---
OB - Delivery Note Procedure Delivery date: 08/08/22 Procedure: Events: Other (Cholestasis) Induction method: Per Pitocin Protocol Delivery monitor: External FHT and External Uterine Route of delivery: Episiotomy description: None Laceration Description: None Specimen: Yes Quantitative Blood Loss (ml): 124 Anesthesia type: Epidural Narrative: Multiple position changes in pushing d/t posterior position of baby. Rotated to Sol and spontaneous delivery. Mother and baby in stable condition. Meconium noted at rupture. Pedi present for delivery. vigorous at delivery. Cord gasses collected and handed off to staff. Baby Date of : 08/08/22 Time of : 10:50 Weeks of gestation at delivery: 38 presentation: vertex position: Left Occiput Anterior Placenta delivery description: Spontaneous
[2022-08-08] MEDS: OXYTOCIN 30 UNITS/NS 500 ML 30 UNITS/500 ML BAG 125 UNITS IV CONT (11:22)
[2022-08-08 11:28] LABS: Rapid Plasma Reagin Non-Reactive (NonReactive)
--- NOTE | 2022-08-08 13:28 | PC.NURSE ---
Patient transferred to post room #285 via wheelchair. Support person present. Oriented to unit, room, information board, rooming in, admission packet and security measures. Patient verbalizes understanding.
[2022-08-08] MEDS: IBUPROFEN 600 MG TABLET PO (13:47)
--- NOTE | 2022-08-08 15:57 | PC.NURSE ---
[id number] Introductions were made, then consulted with patient to assess needs related to . Mother led the conversation with her?plans to feed?her infant and the?experience so far. Resources provided for inpatient and outpatient services with the mom/baby guide and name written on the white board. Mother voiced understanding of information and consents assistance with latching at this time. Reviewed positioning and ear, shoulder, hip alignment, supporting the breast to facilitate a deep latch, asymmetrical latch (off-center), leading with the chin with a big, open, wide gape and body close to mother. latched optimally to the left breast in football position. Education given to mother of how to visualize suck/swallow ratios and listen for drinking at the breast. was able to maintain latch without discomfort to mother. Nipple care reviewed with optimal latch and good positioning. Resources used to facilitate learning were used with the mom and baby guide. Mother voiced understanding of skin to skin, stimulating with massage touch, responsive feedings, hand expressed colostrum, talking to infant to encourage if it has been 2 -2.5 hours since the start of the last , to call if does not latch, or if there is discomfort with . Resources provided for inpatient/outpatient with business card, feeding sheet and the mom/baby guide. Mother voiced understanding of information but states she is tired. Mother is demonstrating learning and will call if there is a request for assistance. Primary RN is present in the room.
[2022-08-09] MEDS: IBUPROFEN 600 MG TABLET PO ×4 (02:43→23:57)
[2022-08-09 04:30] VITALS: BP 106/71; PULSE 96; RESP 18; TEMP 36.6
[2022-08-09 05:37] LABS: Hematocrit 32.7 % (37.0-47.0); Hemoglobin 10.2 g/dL (12.0-15.0)
--- NOTE | 2022-08-09 07:39 | PM.OBPNVD ---
OB - PN: Subj Subjective Date/time seen: 08/09/22 07:39 s/p vaginal delivery day 1, doing well, no complaints OB - PN: Obj Data Labs 08/09/22 04:31 08/08/22 01:32 Labs: Laboratory Results - last 24 hr 08/08/22 08/09/22 01:32 04:31 Hgb 10.2 L Hct 32.7 L RPR Non-reactive OB - PN A/P Plan day: 1 Plan: routine care and discharge home Time Spent With Patient Time: Total time spent is greater than 50% in coordination of care (as documented) at patient's floor/unit and/or counseling patient: Review of Systems Review of Systems: All systems reviewed & are unremarkable except as noted in HPI and below Exam Const: General: cooperative, healthy appearing and comfortable
[2022-08-09 07:45] VITALS: BP 126/85; PULSE 67; RESP 16; TEMP 36.6; O2SAT 100
--- NOTE | 2022-08-09 08:00 | PC.NURSE ---
PT introductions made and plan of care discussed per post , pain management, breast feeding, daily care activities. PT sole recipient of such instructions and no barriers to learning identified at this time. PT received such instructions per one to one discussion, mom baby care guide and demonstrations this shift. PT verbalized understanding of such care.
[2022-08-09 09:21] VITALS: PULSE 67; RESP 16; O2SAT 100
[2022-08-09] MEDS: DOCUSATE SODIUM 100 MG CAPSULE PO ×2 (09:21→17:46)
[2022-08-09] MEDS: MULTIVIT/MIN/PREN/FOL AC/IRON TABLET 1 TAB PO (09:21)
--- NOTE | 2022-08-09 09:30 | PC.NURSE ---
On 08/09/22, the student, Stef Noriega, provided care and completed [facility] documentation on this patient. I have reviewed the student's documentation and agree with the findings.
--- NOTE | 2022-08-09 12:02 | PC.NURSE ---
[id number] Consulted with patient to assess needs related to . Mother led conversation with her experience with feeding baby so far and she is able to latch to both breast independently without pain, however; infant prefers the left breast and she states her left nipple is sore but not painful. Assessment of nipple shows no evidence of injury. Mother voiced understanding of the education shared, to call for assistance if the infant does not latch or if there is discomfort with . Reported to the primary RN.
--- NOTE | 2022-08-09 14:05 | WPDANLDPN2 ---
Anes-Prog Note L&D Date/Time: 08/09/22 14:05 Comfortable throughout: labor and delivery Neuraxial method: epidural Epidural/Spinal procedure site: clean & non-tender Neuro status: Neuro function grossly intact. Cardiovascular status: normal Respiratory status: normal Airway patency: baseline Mental status: baseline Post-Op hydration status: normal Vital Signs: Last Vital Signs Temp 36.6 C 08/09/22 07:45 Pulse 67 08/09/22 09:21 Resp 16 08/09/22 09:21 BP 126/85 08/09/22 07:45 Pulse Ox 100 08/09/22 09:21 O2 Del Method Room Air 08/09/22 09:21 Pain score (VAS): 1 I/O: Intake & Output 08/08/22 08/09/22 08/09/22 23:59 07:59 15:59 Intake Total 400 480 Balance 400 480 Post-procedural complaints: none Patient feedback: Patient satisfied with anesthetic care.
[2022-08-09] MEDS: NEOMYCIN/POLYMYXIN/BACITRACIN OINTMENT PACKET 1 PACKET TOPICAL (20:49)
[2022-08-09 21:32] VITALS: BP 109/70; PULSE 97; RESP 18; TEMP 36.4; O2SAT 97
[2022-08-10 07:55] VITALS: BP 112/65; PULSE 88; RESP 16; TEMP 36.9; O2SAT 99
--- NOTE | 2022-08-10 08:21 | PM.OBPNVD ---
OB - PN: Subj Subjective Date/time seen: 08/10/22 08:21 Patient comments: no complaints baby status: doing well OB - PN: Obj Data Labs 08/09/22 04:31 08/08/22 01:32 OB - PN A/P Plan day: 2 Plan: routine care and discharge home (F/U in 4 weeks) Time Spent With Patient Time: Total time spent is greater than 50% in coordination of care (as documented) at patient's floor/unit and/or counseling patient: Time with patient: less than 15 minutes Review of Systems Review of Systems: All systems reviewed & are unremarkable except as noted in HPI and below Exam Narrative: Fundus firm and vaginal flow controlled. No lower ext redness, warmth, or edema. Negative homans. Const: General: comfortable Chest: Breast/axilla inspection: normal inspection of the breasts Resp: Effort & Inspection: normal respiratory effort Cardio: Rate: regular rate GI: GI Palp: Yes Soft to palpation Psych: Appearance: grossly normal Affect: normal affect Attitude: cooperative Thought content: Yes Normal thought content present Judgement: Good judgement present (Psych)
--- NOTE | 2022-08-10 08:22 | P.DS_ITS ---
DS: Admitting Diagnosis Discharge Date 08/10/22 Admitting Diagnosis Labor DS: Discharge Diagnosis Discharge Diagnosis (1) Vaginal delivery: Code(s): O80 - Encounter for full-term uncomplicated delivery Status: Acute (2) Cholestasis during : Code(s): O26.619 - Liver and biliary tract disorders in , unspecified trimester; K83.1 - Obstruction of bile duct Status: Acute OB - DS: Summary OB Procedures : None OB Procedures Intrapartum: Spontaneous Vag Delivery OB Procedures: : None Time Spent with Patient Time attestation: Total time spent providing and/or coordinating discharge services: DS: Data Data Completed and Pending Pending studies at discharge: Pending at discharge 08/08/22 11:10 Surgical [PTH] Routine Discharge Plan Discharge Attending physician on discharge: Elke Britton Discharging Clinician: Elke Britton Patient Disposition: Home, Self-Care Activity: pelvic rest Diet: as tolerated Patient Instructions: Antibiotic Form Stand Alone Forms: General Discharge Information Follow-up/Referrals: Elke Britton CNM [Certified Nurse Range Technician] - Discharge Medications: Continued HIP See Rx Instructions .ROUTE .COMPLEX Rx Instructions: daily medication Date of admission: 08/08/22 00:46 Primary Care Provider: WilTracy Admitting Provider: Diogo Mina Attending physician on admission: Diogo Mina Condition: Stable
[2022-08-10] MEDS: CYCLOBENZAPRINE HCL 5 MG TABLET PO (08:27)
[2022-08-10] MEDS: IBUPROFEN 600 MG TABLET PO (08:27)
[2022-08-10] MEDS: MULTIVIT/MIN/PREN/FOL AC/IRON TABLET 1 TAB PO (08:27)
[2022-08-10 10:14] LABS: Alanine Aminotransferase 53 U/L (6-35); Albumin Level 3.1 g/dL (3.5-5.1); Alkaline Phosphatase 169 U/L (38-126); Anion Gap 4 mmol/L (8-16); Aspartate Amino Transferase 49 U/L (14-36); Bilirubin,Total 0.4 mg/dL (0.2-1.3); Blood Urea Nitrogen 4 mg/dL (7-17); Calcium 8.5 mg/dL (8.4-10.2); Carbon Dioxide 25 mmol/L (22-30); Chloride 108 mmol/L (98-107); Estimated CRCL calculation 135 ml/min; Estimated Glomerular Filt Rate > 60; Glucose 83 mg/dL (65-110); Potassium 3.7 mmol/L (3.4-5.0); Sodium 137 mmol/L (137-145)
--- NOTE | 2022-08-10 11:14 | PC.NURSE ---
Patient instructed on viewing the discharge video Mother & Baby Care, The First Two Weeks . Patient was given the opportunity and encouraged to ask questions. Patient verbalized understanding of information shared and has been given the mother/baby guide for home reference.
--- NOTE | 2022-08-10 11:29 | PC.NURSE ---
[id number] Purposefully rounded to assess needs. Mother has bottle fed related to unable to latch her infant to the breast. Primary RN has initiated a feeding plan of attempting to the breast, pumping and supplementing. Reinforced education to protect her milk supply and to practice stimulating to eat and to improve milk and confidence. Mother states she will call if she needs assistance with latching .
[2022-08-10] MEDS: ACETAMINOPHEN 325 MG TABLET 650 MG PO (13:08)
== END 2022-08-10 16:15 | disposition home or self-care (01) | DRG 560 ==
LOC: ANHLDR 00:53 → ANHOB2 13:31
PROVIDERS: Admitting Provider Obstetrics & Gynecology; PCP Family Medicine; Referring Provider Advanced Practice Midwife; Visit Provider Obstetrics & Gynecology
DX: O26.62 Liver and biliary tract disorders in childbirth (principal); K83.1 Obstruction of bile duct; O77.0 Labor and delivery complicated by meconium in amniotic fluid; O99.824 Streptococcus B carrier state complicating childbirth; O43.193 Other malformation of placenta, third trimester; O69.81X0 Labor and delivery complicated by cord around neck, without compression, not applicable or unspecified; Z3A.38 38 weeks gestation of pregnancy; Z37.0 Single live birth
CPT/HCPCS: 36415; 80053; 85014; 85018; 85025; 86592; 86850; 86900; 86901; 88307; A9270; J0290; J1200; J2590; J2795; J7120

== ENCOUNTER 2022-08-16 12:37 | Outpatient (CLI) | payer OTHER, SELFPAY ==
[2022-08-16 13:01] VITALS: BP 118/79; PULSE 65
[2022-08-16 13:18] VITALS: BP 128/87; PULSE 75
[2022-08-16 13:20] LABS: Basophils Percent Auto 0.5 % (0.2-1.2); Eosinophils Absolute Auto 0.1 K/mm3 (0-0.3); Eosinophils Percent Auto 1.4 % (0-4.4); Hematocrit 39.2 % (37.0-47.0); Hemoglobin 12.4 g/dL (12.0-15.0); Immature Granulocyte Absolute 0.02 K/mm3 (0.00-0.031); Immature Granulocyte Percent A 0.4 % (0-0.5); Lymphocytes Absolute Auto 1.59 K/mm3 (0.9-3.2); Mean Corpuscular HGB Conc 31.6 g/dl (32-36); Mean Corpuscular Hemoglobin 28.8 pg (26-34); Mean Corpuscular Volume 91.2 fl (80-100); Mean Platelet Volume 9.4 fl (7.4-10.4); Monocytes Absolute Auto 0.2 K/mm3 (0.1-0.6); Monocytes Percent Auto 4.2 % (2.6-8.5); Neutrophils Absolute Auto 3.7 K/mm3 (1.3-6.7); Neutrophils Percent Auto 65.5 % (45.5-73.1); Platelet Count Result 387 k/mm3 (150-375); Red Cell Distribution Width 14.8 % (11.5-14.5); White Blood Count 5.7 K/mm3 (4.5-10.0)
[2022-08-16 13:31] VITALS: BP 123/82; PULSE 68
[2022-08-16 13:34] LABS: Alanine Aminotransferase 31 U/L (6-35); Albumin Level 3.9 g/dL (3.5-5.1); Alkaline Phosphatase 143 U/L (38-126); Anion Gap 5 mmol/L (8-16); Aspartate Amino Transferase 27 U/L (14-36); Bilirubin,Total 0.5 mg/dL (0.2-1.3); Blood Urea Nitrogen 10 mg/dL (7-17); Calcium 9.1 mg/dL (8.4-10.2); Carbon Dioxide 28 mmol/L (22-30); Chloride 104 mmol/L (98-107); Estimated Glomerular Filt Rate > 60; Glucose 79 mg/dL (65-110); Sodium 137 mmol/L (137-145); Uric Acid 5.1 mg/dL (2.5-7.5)
[2022-08-16 13:40] VITALS: BP 118/79; PULSE 65; RESP 18; TEMP 37.2
[2022-08-16 13:45] VITALS: BP 125/85; PULSE 68
--- NOTE | 2022-08-16 13:57 | PC.NURSE ---
Tom Britton CNM notifed of blood pressure readings and PP PIH lab results. Per Tom, ok to discharge home. Take pain medications as directed when discharged from . Patient education provided regarding medications. Patient verbalized understanding.
== END 2022-08-16 13:49 | disposition home or self-care (01) ==
LOC: ANHOBOP 12:42 → ANHOBPP 12:43
PROVIDERS: PCP Family Medicine; Visit Provider Advanced Practice Midwife
DX: O13.5 Gestational [pregnancy-induced] hypertension without significant proteinuria, complicating the puerperium (principal)
CPT/HCPCS: 36415; 80053; 84550; 85025; 99199